=== PATIENT | male | born 1975 | race Two or more races ===

== ENCOUNTER 2019-12-09 19:28 | Emergency (ER) | payer OTHER ==
[~2019-12-09] VITALS: Ht 167.6 cm; Wt 104.3 kg
[2019-12-09 19:45] VITALS: BP 118/72
--- NOTE | 2019-12-09 19:45 | NUR ---
ED Nurse Note: ERMD at bedside.
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
[2019-12-09] MEDS ORDERED: IBUPROFEN600 M1 ORAL (19:49)
[2019-12-09] MEDS ORDERED: LIDODERM700 M1 TOPIC (19:49)
[2019-12-09] MEDS ORDERED: ROBAXIN-750750 MG PO (19:49)
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
[2019-12-09 20:00] VITALS: BP 118/72
--- NOTE | 2019-12-09 20:00 | NUR ---
ER DISCHARGE NOTE: Patient is cleared to be discharged per ERMD, pt is aox4, on room air, with stable vital signs. pt was given dc and prescription instructions, pt was able to verbalize understanding, pt id band removed. pt is able to ambulate with steady gait. pt took all belongings.
== END 2019-12-09 20:00 | disposition home or self-care (01) ==
LOC: EMR 19:50
DX: M62.830 Muscle spasm of back (principal); V63.5XXA Driver of heavy transport vehicle injured in collision with car, pick-up truck or van in traffic accident, initial encounter; Y92.411 Interstate highway as the place of occurrence of the external cause
CPT/HCPCS: 99282